=== PATIENT | female | born 1995 | race Caucasian/White ===

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

== ENCOUNTER 2018-05-20 12:28 | Emergency (ER) | payer BC, OTHER ==
--- NOTE | 2018-05-20 15:29 | ED ---
Abdominal Pain/Female - HPI Summary HPI Summary: A 22 y/o F who is 14 weeks presents to ED with abd pain onset last night. She went to work this AM, and the abd pain continued and she noticed some vaginal bleeding. Associated sx: mild vaginal bleeding (slightly larger than a quarter) She goes to [facility]. This is her second . She has had an U/S that confirmed the . She is due on Nov 17. Former smoker. - History of Current Complaint Chief Complaint: EDAbdPain Stated Complaint: 14 WEEKS PREG ABD PAIN Time Seen by Provider: 05/20/18 15:22 Hx Obtained From: Patient, Family/Plastics Fabricator - friend Hx Last Menstrual Period: 10/31/12 Onset/Duration: Sudden Onset, Lasting Days - yesterday, Still Present Timing: Constant Severity Initially: Moderate Severity Currently: Moderate Pain Intensity: 5 Pain Scale Used: 0-10 Numeric Associated Signs and Symptoms: Positive: Vaginal Bleeding - mild Allergies/Adverse Reactions: Allergies Allergy/AdvReac Type Severity Reaction Status Date / Time No Known Allergies Allergy Verified 05/20/18 12:46 PMH/Surg Hx/FS Hx/Imm Hx Previously Healthy: Yes Endocrine/Hematology History: Denies: Hx Diabetes, Hx Thyroid Disease Cardiovascular History: Denies: Hx Hypertension Respiratory History: Denies: Hx Asthma, Hx Chronic Obstructive Pulmonary Disease (COPD) GI History: Denies: Hx Ulcer Psychiatric History: Denies: Hx of Violent Episodes Against Others - Surgical History Surgery Procedure, Year, and Place: tubes in ears Infectious Disease History: No Infectious Disease History: Denies: Hx Clostridium Difficile, Hx Hepatitis, Hx Human Immunodeficiency Virus (HIV), Traveled Outside the [place] in Last 30 Days - Family History Known Family History: Positive: Diabetes - Social History Occupation: Unemployed - OTHER Lives: With Family Alcohol Use: None Hx Substance Use: No Substance Use Type: Reports: None Hx Tobacco Use: Yes Smoking Status (MU): Former Smoker Have You Smoked in the Last Year: No Review of Systems Negative: Fever, Chills Negative: Erythema Negative: Sore Throat Negative: Chest Pain Negative: Shortness Of Breath, Cough Positive: Abdominal Pain. Negative: Vomiting, Nausea Positive: discharge - vaginal bleeding, mild. Negative: dysuria, hematuria Negative: Myalgia, Edema Negative: Rash Neurological: Other - neg: dizziness All Other Systems Reviewed And Are Negative: Yes Physical Exam - Summary Physical Exam Summary: Constitutional: Well-developed, Well-nourished, Alert. (-) Distressed Skin: Warm, Dry HENT: Normocephalic; Atraumatic Eyes: Conjunctiva normal Neck: Musculoskeletal ROM normal neck. (-) JVD, (-) Stridor, (-) Tracheal deviation Cardio: Rhythm regular, rate normal, Heart sounds normal; Intact distal pulses; The pedal pulses are 2+ and symmetric. Radial pulses are 2+ and symmetric. (-) Murmur Pulmonary/Chest wall: Effort normal. (-) Respiratory distress, (-) Wheezes, (-) Rales Abd: Soft, (-) epigastric tenderness, (-) Distension, (-) Guarding, (-) Rebound Musculoskeletal: (-) Edema Lymph: (-) Cervical adenopathy Neuro: Alert, Oriented x3 Psych: Mood and affect Normal Triage Information Reviewed: Yes Vital Signs On Initial Exam: Initial Vitals Temp Pulse Resp BP Pulse Ox 98.8 F 91 17 123/80 100 05/20/18 12:42 05/20/18 12:42 05/20/18 12:42 05/20/18 12:42 05/20/18 12:42 Vital Signs Reviewed: Yes Diagnostics - Vital Signs Vital Signs Temp Pulse Resp BP Pulse Ox 05/20/18 14:46 98.8 F 90 18 114/75 99 05/20/18 12:42 98.8 F 91 17 123/80 100 - Laboratory Result Diagrams: 05/20/18 15:35 05/20/18 15:34 Lab Statement: Any lab studies that have been ordered have been reviewed, and results considered in the medical decision making process. - Ultrasound No standard instances Ultrasound Interpretation Completed By: Radiologist Summary of Ultrasound Findings: U/S. IMPRESSION: 1. Single live intrauterine gestation with a crown-rump length yielding a gestational age of 14 weeks and 1 day. 2. The placenta is posterior abutting the internal cervical os. There is a small focus of hypoechogenic material beneath the placenta measuring 6 mm which could be a small subchorionic bleed. ED provider has reviewed this report. Abdominal Pain Fem Course/Dx - Course Course Of Treatment: Pt is a 22 y/o F who is 14 weeks presenting with abd pain onset last night. She went to work this AM, and the abd pain continued and she noticed some vaginal bleeding (slightly larger than a quarter.) She goes to [facility]. This is her second . She has had an U/S that confirmed the . She is due on Nov 17. Former smoker. Lab work is unremarkable. UA shows 1+ ketones, 2+ leukocyte esterase, 3+ WBC, 1+ RBC, 1+ bacteria, and squamous epithelia is present. U/S shows "1.) Single live intrauterine gestation with a crown-rump length yielding a gestational age of 14 weeks and 1 day. 2.) The placenta is posterior abutting the internal cervical os. There is a small focus of hypoechogenic material beneath the placenta measuring 6 mm which could be a small subchorionic bleed.". Will discharge patient home to f/u with OB-PHLEBOTOMY SUPPORT TECH. - Diagnoses Provider Diagnoses: Subchorionic hemorrhage, Low-lying placenta Discharge - Sign-Out/Discharge Documenting (check all that apply): Patient Departure - D/C Patient Received Moderate/Deep Sedation with Procedure: No - Discharge Plan Condition: Stable Disposition: HOME Patient Education Materials: Subchorionic Hemorrhage (ED) Referrals: Prashanth Awan MD [Primary Care Provider] - 2 Days Additional Instructions: Return to the emergency department for changing or worsening symptoms. Follow up with your OB-PHLEBOTOMY SUPPORT TECH in 2-3 days. - Attestation Statements Document Initiated by Scribe: Yes Documenting Scribe: Diana Yen Provider For Whom Scribe is Documenting (Include Credential): Dr. Turner Rivera MD Scribe Attestation: I, Diana Yen, scribed for Dr. Turner Rivera MD on 05/20/18 at 1750.
[2018-05-20 15:42] LABS: ABS Basophils 0.1 10^3/ul (0-0.2); ABS Eosinophils 0.1 10^3/ul (0-0.6); ABS Lymphocytes 1.7 10^3/ul (1.0-4.8); ABS Monocytes 0.4 10^3/ul (0-0.8); ABS Neutrophils 5.6 10^3/ul (1.5-7.7); ABS Nucleated RBC 0 10^3/ul; Eosinophil % 1.5 %; Hematocrit 37 % (35-47); Hemoglobin 12.5 g/dl (12.0-16.0); Lymphocyte % 21.6 %; Mean Corpuscular HGB Conc 34 g/dl (31-36); Mean Corpuscular Hemoglobin 30 pg (27-31); Mean Corpuscular Volume 87 fL (80-97); Mean Platelet Volume 9.5 fL (7.4-10.4); Nucleated Red Blood Cells % 0; Platelet Count 187 10^3/ul (150-450); Red Blood Count 4.23 10^6/ul (4.00-5.40); Red Cell Distribution Width 13 % (10.5-15); White Blood Count 7.9 10^3/ul (3.5-10.8)
[2018-05-20 16:15] LABS: Albumin 4.7 g/dL (3.2-5.2); Albumin/Globulin Ratio 1.7 (1-3); BUN/Creatinine Ratio 14.3 (8-20); C Reactive Protein 3.61 mg/L (<8.01); Calcium 9.5 mg/dL (8.6-10.3); Globulin 2.7 g/dL (2-4); Potassium 4.3 mmol/L (3.5-5.0); Total Bilirubin 0.4 mg/dL (0.2-1.0); Total Protein 7.4 g/dL (6.4-8.9)
[2018-05-20 16:27] LABS: Urine Appearance Cloudy; Urine Bacteria 1+ (Absent); Urine Bilirubin Negative (Negative); Urine Blood Negative (Negative); Urine Color Yellow; Urine Glucose Negative (Negative); Urine Ketones 1+ (Negative); Urine Nitrite Negative (Negative); Urine Protein Negative (Negative); Urine Red Blood Cell 1+(3-5/hpf) (Absent); Urine Specific Gravity 1.014 (1.010-1.030); Urine Squamous Epithelial Cell Present (Absent); Urine Urobilinogen Negative (Negative); Urine White Blood Cell 3+(>20/hpf) (Absent)
[2018-05-20 17:30] VITALS: BP 110/60
== END 2018-05-20 17:29 | disposition home or self-care (01) ==
LOC: ED 12:28
DX: O46.91 Antepartum hemorrhage, unspecified, first trimester (principal); O44.41 Low lying placenta NOS or without hemorrhage, first trimester; Z3A.14 14 weeks gestation of pregnancy; Z87.891 Personal history of nicotine dependence
CPT/HCPCS: 36415; 76815; 80053; 81003; 81015; 83605; 83690; 84702; 85025; 86140; 86850; 86900; 86901; 87086; 99282

== ENCOUNTER 2018-07-31 21:17 | Emergency (ER) | payer BC, MEDICAID ==
[2018-07-31 21:58] LABS: Rapid Strep Molecular Negative (Negative)
[2018-07-31] MEDS ORDERED: NS 0.9% 1000 ML** 1,000 ML IV ONE (23:27)
--- NOTE | 2018-07-31 23:31 | ED ---
Throat Pain/Nasal Congestion - HPI Summary HPI Summary: 23-year-old female at 24 weeks presents with sore throat for the past couple days. States she feels fatigued. She states that she just has aches in all her muscles. She denies any cough. she admits occasional sinus congestion. No vaginal bleeding. has occasionally abdominal pain but no contractions. She states she has not felt like eating anything due to the pain in her throat. Denies a history of strep. Has no medical conditions. - History of Current Complaint Chief Complaint: EDGeneral Time Seen by Provider: 07/31/18 23:18 - Allergies/Home Medications Allergies/Adverse Reactions: Allergies Allergy/AdvReac Type Severity Reaction Status Date / Time No Known Allergies Allergy Verified 07/31/18 21:27 PMH/Surg Hx/FS Hx/Imm Hx Endocrine/Hematology History: Denies: Hx Diabetes, Hx Thyroid Disease Cardiovascular History: Denies: Hx Hypertension Respiratory History: Denies: Hx Asthma, Hx Chronic Obstructive Pulmonary Disease (COPD) GI History: Denies: Hx Ulcer Psychiatric History: Denies: Hx of Violent Episodes Against Others - Surgical History Surgery Procedure, Year, and Place: tubes in ears Infectious Disease History: No Infectious Disease History: Denies: Hx Clostridium Difficile, Hx Hepatitis, Hx Human Immunodeficiency Virus (HIV), Traveled Outside the [place] in Last 30 Days - Family History Known Family History: Positive: Diabetes - Social History Alcohol Use: None Hx Substance Use: No Substance Use Type: Reports: None Hx Tobacco Use: Yes Smoking Status (MU): Former Smoker Have You Smoked in the Last Year: No Review of Systems Negative: Fever Positive: Sore Throat Negative: Chest Pain Negative: Shortness Of Breath Positive: Myalgia All Other Systems Reviewed And Are Negative: Yes Physical Exam Triage Information Reviewed: Yes Vital Signs On Initial Exam: Initial Vitals Temp Pulse Resp BP Pulse Ox 100.9 F 123 18 130/67 99 07/31/18 21:26 07/31/18 21:26 07/31/18 21:26 07/31/18 21:26 07/31/18 21:26 Vital Signs Reviewed: Yes Appearance: Positive: Well-Appearing Skin: Positive: Warm, Dry Head/Face: Positive: Normal Head/Face Inspection Eyes: Positive: Normal, EOMI, JOSE MANUEL, Conjunctiva Clear ENT: Positive: Pharyngeal erythema, Tonsillar swelling, Uvula midline, Other - soft palate symmetric. Negative: Tonsillar exudate, Trismus, Muffled voice Respiratory/Lung Sounds: Positive: Clear to Auscultation, Breath Sounds Present Cardiovascular: Positive: Normal, RRR Abdomen Description: Positive: Nontender, Soft Bowel Sounds: Positive: Present Musculoskeletal: Positive: Normal Neurological: Positive: Normal Psychiatric: Positive: Normal Diagnostics - Vital Signs Vital Signs Temp Pulse Resp BP Pulse Ox 07/31/18 21:26 100.9 F 123 18 130/67 99 - Laboratory Lab Results: Lab Results 07/31/18 Range/Units 21:46 Group A Strep Rapid Negative (Negative) Result Diagrams: 07/31/18 23:36 07/31/18 23:36 Lab Statement: Any lab studies that have been ordered have been reviewed, and results considered in the medical decision making process. Re-Evaluation - Re-Evaluation First Eval Re-Evaluation Time: 01:05 Change: Improved Comment: feeling better EENT Course/Dx - Course Course Of Treatment: 23-year-old female presents with sore throat for the past couple days. States she feels fatigued. She states that she just has aches in all her muscles. She denies any cough. she admits occasional sinus congestion. No vaginal bleeding. has occasionally abdominal pain but no contractions. She states she has not felt like eating anything due to the pain in her throat. Denies a history of strep. Has no medical conditions. On exam pharynx erythematous. Uvula midline. Soft palate symmetric. lungs clear to auscultation. Abdomen soft nontender. Strep negative. [place] negative. White blood cell count normal. Gave fluids and feeling better. discussed likely has a viral syndrome. will treat supporatively. patient understand and agrees with plan. - Differential Diagnoses Differential Diagnoses: Pharyngitis, Sinusitis, URI/Bronchitis - Diagnoses Provider Diagnoses: Pharyngitis Discharge - Sign-Out/Discharge Documenting (check all that apply): Patient Departure Patient Received Moderate/Deep Sedation with Procedure: No - Discharge Plan Condition: Good Disposition: HOME Prescriptions: Magic Mouth Was-ANGEL/MAAL/LIDO* 5 ml SWISH SPIT QID #100 ml Patient Education Materials: Pharyngitis (ED) Forms: *Work Release Referrals: Jadyn Gary CNM [Primary Care Provider] - Additional Instructions: Magic mouthwash 5ml swish and spit can use 4x a day Take Tylenol for pain every 6 hours Use saline spray in nose as much as needed for nasal congestion Can gargle salt water Can use cough drops follow up with ob Return to ED if develop any new or worsening symptoms - Billing Disposition and Condition Condition: GOOD Disposition: Home
[2018-08-01] MEDS ORDERED: Lidocaine 2% VISCOUS* 15 ML UDC PO ONE (00:14)
[2018-08-01 00:23] LABS: ABS Basophils 0.1 10^3/ul (0-0.2); ABS Eosinophils 0 10^3/ul (0-0.6); ABS Lymphocytes 0.7 10^3/ul (1.0-4.8); ABS Monocytes 0.4 10^3/ul (0-0.8); ABS Neutrophils 6.8 10^3/ul (1.5-7.7); ABS Nucleated RBC 0 10^3/ul; Eosinophil % 0.1 %; Hematocrit 34 % (33-41); Hemoglobin 11.5 g/dL (12.0-16.0); Lymphocyte % 8.9 %; Mean Corpuscular HGB Conc 34 g/dL (31-36); Mean Corpuscular Hemoglobin 30 pg (27-31); Mean Corpuscular Volume 89 fL (80-97); Mean Platelet Volume 10.3 fL (7.4-10.4); Nucleated Red Blood Cells % 0; Platelet Count 158 10^3/uL (150-450); Red Blood Count 3.82 10^6 /uL (3.70-4.87); Red Cell Distribution Width 13 % (10.5-15); White Blood Count 8.1 10^3/uL (3.5-10.8)
[2018-08-01 00:40] LABS: Albumin 3.9 g/dL (3.2-5.2); Albumin/Globulin Ratio 1.4 (1-3); BUN/Creatinine Ratio 16.7 (8-20); C Reactive Protein 83.64 mg/L (<8.01); Calcium 8.7 mg/dL (8.6-10.3); EGFR African American 152.7 (>60); EGFR Non-African American 126.2 (>60); Globulin 2.8 g/dL (2-4); Potassium 3.7 mmol/L (3.5-5.0); Total Bilirubin 0.3 mg/dL (0.2-1.0); Total Protein 6.7 g/dL (6.4-8.9)
[2018-08-01] MEDS ORDERED: Acetaminophen ADULT LIQ* 650 MG/20.3 ML UDC ONE (01:14)
[2018-08-01] MEDS ORDERED: Acetaminophen ADULT LIQ* 650 MG/20.3 ML UDC PO ONE (01:15)
[2018-08-01 01:23] VITALS: BP 99/47
[2018-08-03 13:06] LABS: EBV Capsid Ag IgG Ab Positive (Negative); EBV Capsid Ag IgM Ab Negative (Negative); Epstein-Barr Nuclear Antigen Positive (Negative)
== END 2018-08-01 01:23 | disposition home or self-care (01) ==
LOC: ED 21:17
DX: O26.92 Pregnancy related conditions, unspecified, second trimester (principal); J02.9 Acute pharyngitis, unspecified; Z3A.24 24 weeks gestation of pregnancy; Z87.891 Personal history of nicotine dependence
CPT/HCPCS: 36415; 80053; 83605; 85025; 86140; 86308; 86664; 86665; 87651; 96360; 99283; A9270-GY

== ENCOUNTER 2018-11-09 01:04 | Inpatient (IN) | payer BC, MEDICAID ==
[2018-11-09] MEDS ORDERED: Nalbuphine* 10 MG/ML 1 ML VIAL IV ONE (01:27)
[2018-11-09] MEDS ORDERED: Promethazine INJ(RESTRICTED)* 25 MG/ML 1 ML VIAL IV ONE (01:27)
--- NOTE | 2018-11-09 01:39 | PN ---
L&D Outpatient: Visit - Reproductive Information Estimated Due Date: 11/17/18 Gestational Age: 38 Weeks and 6 Days : 2 Para: 1 - Reason for Visit Visit Reason: Ctx, back and pelvic pain. Pt reports pain started this afternoon after she sat on yoga ball and did some stretches. Pt reports an increase in pressure, but denies vaginal bleeding, or LOF. - Patient History Patient History Significant: No Review of Systems Constitutional: Uncomfortable CV Complaint: No Respiratory: Shortness of Breath: No Gastrointestinal: No Nausea/Vomiting, Normal Bowel Movement Genitourinary: No Dysuria, No Bleeding, No Leaking Fluid Musculoskeletal: No Epigastric Pain, Back Pain, Contractions, Pressure Neurological: No Headache, No Visual Changes Movement: Normal L&D Outpatient: Exam - Cervical Exam Cervical Exam: 3-4//-1 - Abdominal Exam Abdomen Exam: Fundal Height Consistent with Dates - Membranes Membrane Status: Intact - Ultrasound/Biophysical Profile Ultrasound Status: Not Done EFM Findings - External Monitor Findings Baseline Heart Rate: 135 External Monitor Findings: Accelerations Present, No Pattern of Variable or Late Decelerations, Variability Moderate, Baseline Stable Contractions: Irregular, Mild, < 45 Seconds L&D Outpatient: Asses/Plan Assessment: early labor - Discharge Diagnosis Discharge Diagnosis: Supervision-Normal Preg Plan: Continue Observation, Other - therapeutic rest
[2018-11-09] MEDS ORDERED: Lactated Ringers 1000 ML Bag* 1,000 ML IV SCH ×2 (02:00→12:00)
[2018-11-09 02:10] LABS: ABS Basophils 0.1 10^3/ul (0-0.2); ABS Lymphocytes 1.8 10^3/ul (1.0-4.8); ABS Monocytes 0.8 10^3/ul (0-0.8); ABS Neutrophils 13.6 10^3/ul (1.5-7.7); Eosinophil % 0.1 %; Hematocrit 33 % (35-47); Hemoglobin 11.2 g/dL (12.0-16.0); Lymphocyte % 10.9 %; Mean Corpuscular HGB Conc 34 g/dL (31-36); Mean Corpuscular Hemoglobin 29 pg (27-31); Mean Corpuscular Volume 85 fL (80-97); Mean Platelet Volume 9.6 fL (7.4-10.4); Platelet Count 183 10^3/uL (150-450); Red Blood Count 3.91 10^6 /uL (3.70-4.87); Red Cell Distribution Width 13 % (10-15); White Blood Count 16.3 10^3/uL (3.5-10.8)
[2018-11-09 02:28] LABS: Urine Appearance Cloudy; Urine Bacteria Absent (Absent); Urine Bilirubin Negative (Negative); Urine Blood 1+ (Negative); Urine Color Yellow; Urine Glucose Negative (Negative); Urine Ketones Trace (Negative); Urine Nitrite Positive (Negative); Urine Protein 1+(30 mg/dL) (Negative); Urine Red Blood Cell 1+(3-5/hpf) (Absent); Urine Specific Gravity 1.013 (1.010-1.030); Urine Squamous Epithelial Cell Present (Absent); Urine Urobilinogen Negative (Negative); Urine White Blood Cell 3+(>20/hpf) (Absent)
[2018-11-09 02:35] LABS: Urine Benzodiazepine Screen None Detected (None Detect); Urine Opiates Screen None Detected (None Detect)
[2018-11-09] MEDS ORDERED: Acetaminophen TAB* 325 MG PO PRN ×2 (07:57→11:56)
[2018-11-09] MEDS ORDERED: Gentamicin ADULT per pharmacy 1 NOTE MISC FOLLOW UP PRN ×2 (08:16→12:15)
[2018-11-09] MEDS: Ampicillin ADVAN(*) 2 GM in NS 0.9% 100 ML* 100 ML IVPB SCH ×4 (08:42→20:13)
--- NOTE | 2018-11-09 08:47 | PN ---
Progress Note - Progress Note Date of Service: 11/09/18 SOAP: Subjective: [Mrs. Ramires is a 23 y/o lady at 38 6/7 weeks EGA. She presented to L/ D with complaints of labor. She had been seen on 10/31/18 at L/D was diagnosed with a UTI and given a prescription for antibiotics which the patient did not fill or take. She is diaphoretic, complains of Right sided back pain and enies urinary s/sx. ] Patient denies chest pain, or SOB. Objective: [Vitals T102.4 P 97 BP 120/73 RR 18 POx % RA.] Lungs CTA b/l Cv - RRR Abdomen- gravid with palpable uterine contractions, otherwise NT Right CVA tenderness noted on palpation. FHT's 140's with GLTV, [place]'s ctx Q 3-5 min apart Cervical exam 4/90/-1 ROM plus positive. Clear fluid. Urine culture from 10/31/18 c/w E-Coli sensitive to ampicillin Assessment: [I/P at 38 6/7 weeks with s/sx c/w pyelonephritis, ruptured membranes in labor] Plan: [Antibiotics, Ampicillin and gentamycin IV Tylenol for fever Start pitocin augmentation if protraction disorder Continuos monitoring. ]
--- NOTE | 2018-11-09 09:03 | HP ---
General Information - Reason for Visit Pt presented early this AM with c/o contractions and back pain. Pt admits she was given antibiotics rx for UTI 10/31/18 but did not fill them. Pt states back pain and contraction pain are continuing. Pt declines pain meds at this time. - General Information Maternal Age: 23 Grav: 2 Para: 1 SAB: 0 IEA: 0 Estimated Due Date: 11/17/18 Determined By: Early Ultrasound Gestational Age in Weeks/Days: 38w6d Maternal Blood Type and Rh: O Negative - Results this Serology/RPR Result: Non-Reactive Rubella Result: Immune HBsAg Result: Negative HIV Result: Negative GBS Culture Result: Negative Past Medical History Delivery History: Hx Uncomplicated Vaginal Delivery - mild shoulder dystocia, relieved with suprpubic pressure and denise, APGARS 9/9 Pertinent Past Medical History: Non-Contributory - Antepartal Records Antepartal Records: Reviewed, Complicated by: - pyelonephritis Review of Systems Constitutional: Uncomfortable CV Complaint: Yes Respiratory: Shortness of Breath: No Gastrointestinal: No Nausea/Vomiting, Normal Bowel Movement Genitourinary: No Dysuria, No Bleeding, No Leaking Fluid Musculoskeletal: No Epigastric Pain, Back Pain, Contractions, Pressure Neurological: No Headache, No Visual Changes Movement: Normal Exam Allergies/Adverse Reactions: Allergies No Known Allergies Allergy (Verified 11/09/18 03:19) BP:120/73, P:100, R:18, T:102.4, O2: 98% Lab Values - Entire Visit: Laboratory Tests 11/09/18 11/09/18 11/09/18 01:40 01:40 01:45 WBC RBC Hgb Hct MCV MCH MCHC RDW Plt Count MPV Neut % (Auto) Lymph % (Auto) [place] % (Auto) Eos % (Auto) Baso % (Auto) Absolute Neuts (auto) Absolute Lymphs (auto) Absolute Monos (auto) Absolute Eos (auto) Absolute Basos (auto) Absolute Nucleated RBC Nucleated RBC % Urine Color Yellow Urine Appearance Cloudy Urine pH 8.0 Ur Specific [place] 1.013 Urine Protein 1+(30 mg/dl) A Urine Ketones Trace A Urine Blood 1+ A Urine Nitrate Positive A Urine Bilirubin Negative Urine Urobilinogen Negative Ur Leukocyte Esterase 3+ A Urine WBC (Auto) 3+(>20/hpf) A Urine RBC (Auto) 1+(3-5/hpf) A Ur Squamous Epith Cells Present A Urine Bacteria Absent Urine Glucose Negative Vag Amniotic Fld Detect Positive Urine Opiates Screen None detected Ur Barbiturates Screen None detected Ur Phencyclidine Scrn None detected Ur Amphetamines Screen None detected U Benzodiazepines Scrn None detected Urine Cocaine Screen None detected U Cannabinoids Screen None detected Blood Type Antibody Screen 11/09/18 11/09/18 01:55 01:55 WBC 16.3 H RBC 3.91 Hgb 11.2 L Hct 33 L MCV 85 MCH 29 MCHC 34 RDW 13 Plt Count 183 MPV 9.6 Neut % (Auto) 83.9 Lymph % (Auto) 10.9 [place] % (Auto) 4.8 Eos % (Auto) 0.1 Baso % (Auto) 0.3 Absolute Neuts (auto) 13.6 H Absolute Lymphs (auto) 1.8 Absolute Monos (auto) 0.8 Absolute Eos (auto) 0.0 Absolute Basos (auto) 0.1 Absolute Nucleated RBC 0.0 Nucleated RBC % 0.0 Urine Color Urine Appearance Urine pH Ur Specific [place] Urine Protein Urine Ketones Urine Blood Urine Nitrate Urine Bilirubin Urine Urobilinogen Ur Leukocyte Esterase Urine WBC (Auto) Urine RBC (Auto) Ur Squamous Epith Cells Urine Bacteria Urine Glucose Vag Amniotic Fld Detect Urine Opiates Screen Ur Barbiturates Screen Ur Phencyclidine Scrn Ur Amphetamines Screen U Benzodiazepines Scrn Urine Cocaine Screen U Cannabinoids Screen Blood Type O Negative Antibody Screen Negative - Measurements Height: 5 ft 9 in Weight: 160 lb Weight in lbs: [phone] Body Mass Index (BMI): 23.6 Pre- Weight: 140 lb 0.015 oz Weight Gained This : 19.999 lbs and 0.001 ozs - Exam Breast: Breast Exam Deferred CVA: CVA Tenderness Extremities: No Edema Heart: Normal Rhythm/Heart Sounds HEENT: No Significant Findings Lungs: Clear Bilaterally Rectal: Rectal Exam Deferred Reflexes: DTR 2+ Thyroid: No Thyromegaly - Abdominal Exam Abdomen Exam: Fundal Height Consistent with Dates - Ultrasound/Biophysical Profile Ultrasound Status: Not Done Targeted Exam Findings Estimated Weight: 7lbs 10oz Cervical Exam: 4cm Effacement: 90% Station: -1 Presenting Part: Vertex Membrane Status: Bulging Amniotic Fluid Evaluation: Positive ROM Plus Bleeding/Discharge: Bloody Show EFM Findings - External Monitor Findings Baseline Heart Rate: 140 External Monitor Findings: Accelerations Present, No Pattern of Variable or Late Decelerations, Variability Moderate, Baseline Stable Contractions: Irregular, Moderate, 45-90 Seconds Contraction Frequency: 2-8 min Assessment/Plan - Assessment 23 y.o. , 38w6d EGA, suspected pyelonephritis, cat I NST - Obstetrical Risk Factors Obstetrical Risk Factors: Fever Risk Factors Comment: pyelonephritis - Plan Plan: Admit - Anticipate Vaginal Delivery Plan Comment: augmentation of labor, IV antibiotics, tylenol for fever. Dr. Awan consulted and evaluated pt and agrees with plan. - Date/Time of Admission Date of Admission: 11/09/18 Time of Admission: 08:00
[2018-11-09] MEDS: Gentamicin ADULT (*) 80 MG in NS 0.9% 100 ML* 100 ML IVPB SCH ×2 (09:17→17:29)
[2018-11-09] MEDS ORDERED: Gentamicin IVPREMIX 80 MG/80 ML BAG IV SCH (09:30)
[2018-11-09 10:16] LABS: Albumin 3.5 g/dL (3.2-5.2); Albumin/Globulin Ratio 1.2 (1-3); BUN/Creatinine Ratio 11.7 (8-20); Calcium 8.5 mg/dL (8.6-10.3); EGFR African American 152.7 (>60); EGFR Non-African American 126.2 (>60); Potassium 3.4 mmol/L (3.5-5.0); Total Bilirubin 0.8 mg/dL (0.2-1.0); Total Protein 6.5 g/dL (6.4-8.9)
[2018-11-09] MEDS ORDERED: Witch Hazel PAD* JAR TOPICAL PRN (11:56)
[2018-11-09] MEDS ORDERED: Dibucaine 1% 28.35 GM TUBE PR PRN (11:56)
[2018-11-09] MEDS ORDERED: Glycerin ADULT SUPP PR PRN (11:56)
[2018-11-09] MEDS ORDERED: Oxytocin in LR* 20 UNITS/1,000 ML BAG IVPB SCH (12:00)
--- NOTE | 2018-11-09 12:00 | PROCNOTE ---
[facility] OB: Delivery Note - Delivery A Date of : 11/09/18 Time of : 11:42 Sex: Female Score 1 Minute: 9 Score 5 Minutes: 9 Gestational Age in Weeks and Days at Delivery: 38 Weeks and 6 Days Delivery Method: Spontaneous Vaginal Labor: Spontaneous Amniotic Fluid: Clear Estimated Blood Loss: 150 Anesthesia/Analgesia: IM/IV, Nitrous-Labor Delivered By: Jadyn Gary - Nursery Level of Nursery: Regular/Bedside - Perineum Perineal Injury: None/Intact Perineal Repair: None - Events Delivery Events of Note Comment: compound arm presentation. Maternal fever and suspected pyelonephritis
[2018-11-09] MEDS ORDERED: Simethicone TAB* 80 MG TAB.CHEW PO SCH (12:30)
[2018-11-09] MEDS: Ibuprofen TAB* 600 MG PO PRN (13:10)
[2018-11-09] MEDS: Docusate CAP* 100 MG PO SCH ×2 (13:10→21:03)
[2018-11-09] MEDS ORDERED: OXYTOCIN* 10 UNITS/ML 1 ML VIAL ONE (13:12)
[2018-11-10] MEDS: Ampicillin ADVAN(*) 2 GM in NS 0.9% 100 ML* 100 ML IVPB SCH ×3 (00:02→12:13)
[2018-11-10] MEDS: Gentamicin ADULT (*) 80 MG in NS 0.9% 100 ML* 100 ML IVPB SCH ×2 (01:21→09:47)
[2018-11-10] MEDS ORDERED: Gentamicin Trough Level 1 NOTE MISC FOLLOW UP SCH (09:00)
[2018-11-10] MEDS: Ferrous Gluconate TAB* 324 MG TAB PO SCH ×2 (09:00→22:00)
[2018-11-10 09:11] LABS: ABS Basophils 0.1 10^3/ul (0-0.2); ABS Eosinophils 0.1 10^3/ul (0-0.6); ABS Lymphocytes 1.1 10^3/ul (1.0-4.8); ABS Monocytes 0.8 10^3/ul (0-0.8); ABS Neutrophils 11.4 10^3/ul (1.5-7.7); Eosinophil % 0.5 %; Hematocrit 31 % (35-47); Hemoglobin 10.5 g/dL (12.0-16.0); Mean Corpuscular HGB Conc 34 g/dL (31-36); Mean Corpuscular Hemoglobin 29 pg (27-31); Mean Corpuscular Volume 86 fL (80-97); Mean Platelet Volume 9.7 fL (7.4-10.4); Platelet Count 180 10^3/uL (150-450); Red Blood Count 3.63 10^6 /uL (3.70-4.87); Red Cell Distribution Width 14 % (10-15); White Blood Count 13.4 10^3/uL (3.5-10.8)
[2018-11-10] MEDS ORDERED: NS 0.9% 100 ML* 0 ML ONE (09:33)
[2018-11-10] MEDS: Docusate CAP* 100 MG PO SCH ×3 (09:48→22:31)
[2018-11-10] MEDS ORDERED: Gentamicin PEAK LEVEL* 1 NOTE MISC FOLLOW UP SCH (10:30)
[2018-11-10 11:09] LABS: EGFR Non-African American 133.9 (>60)
[2018-11-10] MEDS ORDERED: Amoxicillin PO (*) 500 MG CAP PO SCH (13:00)
[2018-11-10 13:19] LABS: Gentamicin Peak 5.3 mcg/mL
[2018-11-10] MEDS: Amoxicillin PO (*) 500 MG CAP PO SCH (18:11)
[2018-11-10] MEDS: Ibuprofen TAB* 600 MG PO PRN (19:30)
[2018-11-11] MEDS: Amoxicillin PO (*) 500 MG CAP PO SCH ×3 (00:04→12:00)
[2018-11-11 08:09] VITALS: BP 99/56
[2018-11-11] MEDS: Ibuprofen TAB* 600 MG PO PRN (08:45)
[2018-11-11] MEDS: Docusate CAP* 100 MG PO SCH (08:45)
== END 2018-11-11 12:20 | disposition home or self-care (01) | DRG 560 ==
LOC: MCHOBOUT 01:04 → MCHOB 02:55
PROVIDERS: ADMIT Midwife; ATTEND Midwife
PROC: 10E0XZZ Delivery of Products of Conception, External Approach (ICD-10-PCS; principal; 2018-11-09)
PROC: 4A1HXCZ Monitoring of Products of Conception, Cardiac Rate, External Approach (ICD-10-PCS; 2018-11-09)
DX: O75.3 Other infection during labor (principal); N12 Tubulo-interstitial nephritis, not specified as acute or chronic; Z37.0 Single live birth; O32.6XX0 Maternal care for compound presentation, not applicable or unspecified; B96.20 Unspecified Escherichia coli [E. coli] as the cause of diseases classified elsewhere; Z3A.38 38 weeks gestation of pregnancy
CPT/HCPCS: 36415; 80053; 80170; 80307; 81003; 81015; 82565; 84112; 84520; 85025; 86850; 86900; 86901; 87077; 87086; 87186; A9270-GY; J1580; J2300; J2550; J2590

== ENCOUNTER 2018-12-08 16:44 | Emergency (ER) | payer BC, MEDICAID ==
[2018-12-08 17:10] VITALS: BP 102/66
--- NOTE | 2018-12-08 17:55 | UC ---
Bite Injury/Animal HPI - HPI Summary HPI Summary: 23-year-old woman comes in with a chief complaint of a bee sting to her left lower leg that is read. 2 days ago gets stung by a bee the same site. There has been some swelling and now there is redness that started spread. No fevers chills feels well otherwise the patient is breast-feeding. No history of allergic reaction to bee stings. - History of Current Complaint Chief Complaint: UCSkin Stated Complaint: BEE STING Time Seen by Provider: 12/08/18 17:43 Hx Last Menstrual Period: 10/31/12 Pain Intensity: 2 - Allergies/Home Medications Allergies/Adverse Reactions: Allergies Allergy/AdvReac Type Severity Reaction Status Date / Time No Known Allergies Allergy Verified 12/08/18 17:11 PMH/Surg Hx/FS Hx/Imm Hx Previously Healthy: Yes - Surgical History Surgical History: None Surgery Procedure, Year, and Place: tubes in ears - Family History Known Family History: Positive: Diabetes - Social History Alcohol Use: None Substance Use Type: None Smoking Status (MU): Current Some Day Smoker Have You Smoked in the Last Year: No Household Exposure Type: Cigarettes - Immunization History Most Recent Influenza Vaccination: 2015 Most Recent Tetanus Shot: 09/19/15 Most Recent Pneumonia Vaccination: none Review of Systems All Other Systems Reviewed And Are Negative: Yes Constitutional: Positive: Negative Skin: Positive: Other - SEE HPI Eyes: Positive: Negative ENT: Positive: Negative Respiratory: Positive: Negative Cardiovascular: Positive: Negative Gastrointestinal: Positive: Negative Motor: Positive: Negative Neurovascular: Positive: Negative Musculoskeletal: Positive: Other: - SEEE HPI Neurological: Positive: Negative Psychological: Positive: Negative Is Patient Immunocompromised?: No Physical Exam Triage Information Reviewed: Yes Appearance: Well-Appearing, No Pain Distress, Well-Nourished Vital Signs: Initial Vital Signs Temp 98.5 F 12/08/18 17:07 Pulse 91 12/08/18 17:07 Resp 18 12/08/18 17:07 BP 102/66 12/08/18 17:07 Pulse Ox 98 12/08/18 17:07 Vital Signs Reviewed: Yes Eye Exam: Normal Eyes: Positive: Conjunctiva Clear Respiratory: Positive: No respiratory distress Musculoskeletal: Positive: Strength Intact, ROM Intact Neurological: Positive: Alert Psychological: Positive: Age Appropriate Behavior Skin: Positive: Other - Left upper calf has an area 8 cm in diameter of flat erythema blanching with some edema underneath it. No streaking. No foreign body seen no drainage. Bite Injury Course/Dx - Differential Dx/Diagnosis Provider Diagnosis: Bee sting reaction, Cellulitis of left leg Discharge ED - Sign-Out/Discharge Documenting (check all that apply): Patient Departure All imaging exams completed and their final reports reviewed: No Studies - Discharge Plan Condition: Stable Disposition: HOME Prescriptions: Cephalexin CAP* [Keflex CAP*] 500 mg PO TID #30 cap Patient Education Materials: Cellulitis (ED), Insect Bite or Sting (ED) Referrals: Jadyn Gary CNM [Primary Care Provider] - Additional Instructions: FOLLOW UP WITH YOUR DOCTOR IF NOT COMPLETELY IMPROVED. GET RECHECKED SOONER IF YOUR CONDITION WORSENS; SPREAD OF INFECTION, FEVER, YOU FEEL ILL OR ANY QUESTIONS OR CONCERNS. - Billing Disposition and Condition Condition: STABLE Disposition: Home
== END 2018-12-08 18:00 | disposition home or self-care (01) ==
LOC: UCEAST 16:44
DX: T63.441A Toxic effect of venom of bees, accidental (unintentional), initial encounter (principal); Y92.9 Unspecified place or not applicable; L03.116 Cellulitis of left lower limb; F17.210 Nicotine dependence, cigarettes, uncomplicated
CPT/HCPCS: 99212; G0463

== ENCOUNTER 2020-06-19 14:00 | Inpatient (IN) ==
[2020-06-19] MEDS ORDERED: ceFOXitin 2 GM IVPREMIX 2 GM/50 ML BAG IVPB ONE (16:22)
[2020-06-19] MEDS ORDERED: Lactated Ringers 1000 ml BAG 1,000 ML IV ONE (16:22)
[2020-06-19] MEDS ORDERED: Buffered Lidocaine 1% SYRIN 1 ml INTRADERM ONE (16:22)
[2020-06-19] MEDS ORDERED: ceFOXitin 2 GM IVPREMIX 2 GM/50 ML BAG ONE (16:28)
[2020-06-19] MEDS ORDERED: Metoclopramide 5 MG/ML VIAL (10 mg) ONE (16:30)
[2020-06-19] MEDS ORDERED: Sodium Citrate/Citric Acid LIQ 15 ML UDC ONE (16:30)
[2020-06-19] MEDS ORDERED: Lactated Ringers 1000 ml BAG 1,000 ML IV SCH ×2 (17:00→19:00)
[2020-06-19] MEDS ORDERED: DiMENhydriNATE IV 50 mg/ml 1 ml VIAL IV PUSH PRN (17:58)
[2020-06-19] MEDS ORDERED: oxyCODONE/Acetamin 5/325 mg TAB PO PRN (17:58)
[2020-06-19] MEDS ORDERED: Naloxone 0.4 mg VIAL 0.4 mg/ml 1 ml VIAL IV PRN ×2 (17:58→18:02)
[2020-06-19] MEDS ORDERED: diPHENhydraMINE IV 50 MG/ML 1 ml VIAL (BENADRYL) IV PRN (18:02)
[2020-06-19] MEDS ORDERED: fentaNYL 100 mcg/2 ml 50 MCG/ML VIAL IV PRN (18:02)
[2020-06-19] MEDS ORDERED: Witch Hazel PAD JAR TOPICAL PRN (18:41)
[2020-06-19] MEDS ORDERED: Dibucaine 1% OINT 28.35 GM TUBE PR PRN (18:41)
[2020-06-19] MEDS ORDERED: Glycerin ADULT 2.4 gm SUPP PR PRN (18:41)
[2020-06-19 18:59] LABS: Urine Benzodiazepine Screen None Detected (None Detect); Urine Cannabinoids Screen None Detected (None Detect); Urine Opiates Screen None Detected (None Detect)
[2020-06-20 07:45] LABS: ABS Eosinophils 0.1 10^3/ul (0-0.6); ABS Lymphocytes 1.8 10^3/ul (1.0-4.8); ABS Neutrophils 12.5 10^3/ul (1.5-7.7); Eosinophil % 0.5 %; Hematocrit 26 % (35-47); Hemoglobin 8.4 g/dL (12.0-16.0); Lymphocyte % 11.9 %; Mean Corpuscular HGB Conc 32 g/dL (31-36); Mean Corpuscular Hemoglobin 25 pg (27-31); Mean Corpuscular Volume 77 fL (80-97); Mean Platelet Volume 10.1 fL (7.4-10.4); Platelet Count 188 10^3/uL (150-450); Red Blood Count 3.37 10^6 /uL (3.70-4.87); Red Cell Distribution Width 15 % (10-15); White Blood Count 15.5 10^3/uL (3.5-10.8)
[2020-06-21 07:54] VITALS: BP 122/78
== END 2020-06-21 16:24 | disposition home or self-care (01) | DRG 540 ==
LOC: MCHOBOUT 14:00 → MCHOB 16:15
PROVIDERS: ADMIT Obstetrics & Gynecology; ATTEND Obstetrics & Gynecology

== ENCOUNTER 2023-11-23 05:33 | Inpatient (IN) ==
[2023-11-23] MEDS: Lactated Ringers 1000 ml BAG 1,000 ML IV ONE (06:05)
[2023-11-23 06:21] LABS: ABS Basophils 0.1 10^3/uL (0.0-0.1); ABS Eosinophils 0.1 10^3/uL (0.0-0.5); ABS Lymphocytes 2.4 10^3/uL (1.0-4.8); ABS Monocytes 0.6 10^3/uL (0.0-0.9); ABS Neutrophils 5.3 10^3/uL (1.5-7.6); ABS Nucleated RBC 0.01 10^3/ul; Eosinophil % 1.7 %; Hematocrit 31.3 % (35-45); Hemoglobin 10.7 g/dL (11.5-14.3); Lymphocyte % 28.2 %; Mean Corpuscular Hemoglobin 27.8 pg (27-33); Mean Corpuscular Hgb Conc 34.2 g/dL (31-36); Mean Corpuscular Volume 81.3 fL (80-97); Mean Platelet Volume 9.4 fL (7.5-11.2); Nucleated Red Blood Cells % 0.1 %/100WBC (0.0-0.8); Platelet Count 222 10^3/uL (150-450); Red Blood Count 3.86 10^6/uL (3.63-4.92); Red Cell Distribution Width 14.1 % (12-17); White Blood Count 8.5 10^3/uL (3.8-11.8)
[2023-11-23] MEDS ORDERED: fentaNYL 100 mcg/2 ml 50 MCG/ML VIAL ONE (07:09)
[2023-11-23] MEDS ORDERED: Morphine PF AMP (0.5MG/ML) 5 MG/10 ML AMP ONE (07:09)
[2023-11-23] MEDS: Lactated Ringers 1000 ml BAG 1,000 ML IV SCH (07:29)
[2023-11-23] MEDS: Sodium Citrate/Citric Acid LIQ 15 ML UDC PO ONE ×2 (07:50→09:45)
[2023-11-23] MEDS ORDERED: Phenylephrine 40 mcg/mL 10mL (400mcg) SYRINGE ONE (07:53)
[2023-11-23] MEDS ORDERED: Dexamethasone IV 4 MG/ML VIAL 1 ml VIAL ONE (08:36)
[2023-11-23] MEDS ORDERED: Ondansetron 4 mg VIAL 2 MG/ML 2 ml VIAL ONE (08:36)
[2023-11-23] MEDS ORDERED: Oxytocin 10 UNITS/ML 1 ML VIAL ONE (08:36)
[2023-11-23 09:02] LABS: Urine Appearance Turbid; Urine Bilirubin Negative (Negative); Urine Blood Negative (Negative); Urine Color Yellow; Urine Glucose Negative (Negative); Urine Ketones Negative (Negative); Urine Nitrite 2+ (Negative); Urine Protein Trace (Negative); Urine Specific Gravity 1.019 (1.002-1.030); Urine Urobilinogen Negative (Negative); Urine pH 6.5 (5.0-8.0)
[2023-11-23] MEDS ORDERED: Witch Hazel PAD JAR TOPICAL PRN (09:17)
[2023-11-23] MEDS ORDERED: Dibucaine 1% OINT 28.35 GM TUBE PR PRN (09:17)
[2023-11-23] MEDS ORDERED: Glycerin ADULT 2.4 gm SUPP PR PRN (09:17)
[2023-11-23] MEDS ORDERED: Metoclopramide 5 MG/ML VIAL (10 mg) IV PRN (09:20)
[2023-11-23] MEDS ORDERED: Naloxone 0.4 mg VIAL 0.4 mg/ml 1 ml VIAL IV PUSH PRN (09:20)
[2023-11-23] MEDS ORDERED: Ondansetron 4 mg VIAL 2 MG/ML 2 ml VIAL IV PRN (09:20)
[2023-11-23] MEDS ORDERED: Naloxone 0.4 mg VIAL 0.4 mg/ml 1 ml VIAL IV PRN (09:20)
[2023-11-23 09:42] LABS: Urine Benzodiazepine Screen None Detected (None Detect); Urine Cannabinoids Screen None Detected (None Detect); Urine Opiates Screen None Detected (None Detect)
[2023-11-23] MEDS: Acetaminophen IV 1 GM/100ML 1,000 MG/100 ML BAG IV PRN (09:42)
[2023-11-23] MEDS: Buffered Lidocaine 1% SYRIN 1 ml INTRADERM ONE (09:43)
[2023-11-23] MEDS: ceFOXitin 2 GM IVPREMIX 2 GM/50 ML BAG IVPB ONE (09:44)
[2023-11-23] MEDS ORDERED: Lactated Ringers 1000 ml BAG 1,000 ML IV SCH (10:00)
[2023-11-23 10:16] LABS: Urine Amorphous Crystals Present /HPF (Absent); Urine Bacteria 1+ /HPF (Absent); Urine Red Blood Cell Trace(0-2/hpf) /HPF (0-Trace); Urine Squamous Epithelial Cell Present /HPF (Absent); Urine White Blood Cell Trace(0-5/hpf) /HPF (0-Trace)
[2023-11-23] MEDS: Oxytocin in LR 20,000 MILLI.UNIT/1,000 ML BAG IV SCH (11:17)
[2023-11-24 07:06] LABS: ABS Basophils 0.1 10^3/uL (0.0-0.1); ABS Eosinophils 0.2 10^3/uL (0.0-0.5); ABS Monocytes 0.8 10^3/uL (0.0-0.9); ABS Neutrophils 8.7 10^3/uL (1.5-7.6); Eosinophil % 1.4 %; Hematocrit 26.1 % (35-45); Hemoglobin 8.8 g/dL (11.5-14.3); Lymphocyte % 17.1 %; Mean Corpuscular Hemoglobin 27.6 pg (27-33); Mean Corpuscular Hgb Conc 33.6 g/dL (31-36); Mean Corpuscular Volume 82.3 fL (80-97); Mean Platelet Volume 9.8 fL (7.5-11.2); Platelet Count 185 10^3/uL (150-450); Red Blood Count 3.17 10^6/uL (3.63-4.92); White Blood Count 11.8 10^3/uL (3.8-11.8)
[2023-11-24] MEDS: Iron Sucrose 200 MG in NS 0.9% 100 ml BAG 100 ML IVPB ONE (13:33)
[2023-11-25 07:46] VITALS: BP 123/55
[2023-11-25] MEDS: RHO D Immune Globulin (HUMAN) 300 MCG = 1,500 I.U. INJ IM PRN (09:39)
== END 2023-11-25 11:25 | disposition home or self-care (01) | DRG 788 ==
LOC: MCHOB 05:33
PROVIDERS: ADMIT Obstetrics & Gynecology; ATTEND Obstetrics & Gynecology